=== PATIENT | male | born 2000 | race Caucasian/White ===

== ENCOUNTER 2022-08-06 17:55 | Emergency (ER) | payer OTHER, SELFPAY ==
[2022-08-06 18:01] VITALS: BP 145/73; PULSE 60; RESP 16; TEMP 36.9; O2SAT 99; BMI 25.0
--- NOTE | 2022-08-06 18:47 | CRLHL7_ITS ---
For Patients: As a result of the Century Cures Act, medical imaging exams and procedure reports are released immediately into your electronic medical record. You may view this report before your referring provider. If you have questions, please contact your health care provider. Indication: Pain over right anterior superior pelvis from an injury. Technique: Single AP view of the pelvis. Comparison: None Findings/Impression: No acute fracture or dislocation. Femoral necks are not well evaluated due to positioning. Normal alignment of the pubic symphysis. No sacral ala fracture identified. Nonspecific nonobstructive bowel gas pattern in the lower abdomen. Dictated by Isamar Brown MD @ 08/06/2022 7:27:55 PM (Electronically Signed)
[2022-08-06] MEDS: ACETAMINOPHEN 500 MG TABLET 1000 MG PO (18:59)
--- NOTE | 2022-08-06 19:24 | ED_ITS ---
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 He has pain over the right lower quadrant of his abdomen, and is brought in by friend, he has no pain with walking per se or standing, it is whenever he flexes or moves his muscles. There is no history of loss of consciousness back, neck or arm pain. He did take some ibuprofen before the game with this was for other aches and pains. Related Data Home Medications Medication Instructions Recorded Confirmed No Known Home Medications 08/06/22 08/06/22 Allergies Allergy/AdvReac Type Severity Reaction Status Date / Time No Known Drug Allergies Allergy Verified 08/06/22 17:43 Review of Systems Status of ROS: Reports: 6 or more systems reviewed and unremarkable except as noted in History and below PFSH PFSH Social History Smoking Status: Never smoker Do you use any of these nicotine containing products: None How often do you have a drink containing alcohol: never How often do you have six or more drinks on one occasion: Never AUDIT-C Alcohol total score: 0 Non-prescribed substance use: denies use service: No Exam Narrative: Exam Narrative: 22-year-old gentleman seen in room 7, he is in no apparent distress, he is able to stand and walk around although he is very rosa when he moves. His right lower quadrant sews of swelling overlying the anterior superior iliac crest, he is very thin, no masses twisting or turning tends to exacerbate his pain. Testicles both normal, no masses noted. Bowel sounds are normal no organomegaly, Chest is good air entry bilaterally with no wheezes crackles noted heart sounds are normal, Thoracic lumbar and cervical spines are nontender. Able to walk fully, hips have good range of motion bilaterally. With internal external rotation and flexion normal. Distal pulses are normal. Ultrasound was used and overlying the right superior iliac crest he is small amount of fluid overlying the bone. Consistent with a small hematoma, Const: Vital Signs, click to edit/add: Vital Signs - 24 hr 08/06/22 18:01 Temperature 98.4 F Pulse Rate [Pulse Oximeter] 60 Respiratory Rate 16 Blood Pressure [Ri ght Upper Arm] 145/73 H Pulse Oximetry 99 Oxygen Delivery Me thod Room Air Documenting provider has reviewed patient's vital signs: yes Course Vital Signs Vital signs: Initial Vital Signs Temperature 98.4 F 08/06/22 18:01 Temperature Source Temporal Artery Scan 08/06/22 18:01 Pulse Rate 60 08/06/22 18:01 Respiratory Rate 16 08/06/22 18:01 Blood Pressure 145/73 H 08/06/22 18:01 Blood Pressure Mean 97 08/06/22 18:01 Blood Pressure Position Supine 08/06/22 18:01 Pulse Oximetry 99 08/06/22 18:01 Oxygen Delivery Method 08/06/22 18:01 Vital Signs Temperature 98.4 F 08/06/22 18:01 Pulse Rate 60 08/06/22 18:01 Respiratory Rate 16 08/06/22 18:01 Blood Pressure 145/73 H 08/06/22 18:01 Pulse Oximetry 99 08/06/22 18:01 Oxygen Delivery Method 08/06/22 18:01 Temperature 98.4 F 08/06/22 18:01 Pulse Rate 60 08/06/22 18:01 Respiratory Rate 16 08/06/22 18:01 Blood Pressure 145/73 H 08/06/22 18:01 Pulse Oximetry 99 08/06/22 18:01 Oxygen Delivery Method 08/06/22 18:01 Medical Decision Making Imaging Data Pelvis x-ray: Attestation: I have reviewed the pertinent imaging results. My impression: Negative x-ray Radiologist's impression: Patient: JACKIE CROWLEY Facility: [facility] Site . Site : 2001 Study: XRay Pelvis -08/06/2022 6:58:47 PM Ordering Physician: Jamaal Curry Final Report: Indication: Pain over right anterior superior pelvis from an injury. Technique: Single AP view of the pelvis. Comparison: None Findings/Impression: No acute fracture or dislocation. Femoral necks are not well evaluated due to positioning. Normal alignment of the pubic symphysis. No sacral ala fracture identified. Nonspecific nonobstructive bowel gas pattern in the lower abdomen. Dictated by Isamar Brown MD @ 08/06/2022 7:27:55 PM (Electronic Signature) Discharge Plan Discharge Clinical Impression: Pelvic contusion Patient Disposition: Home, Self-Care Condition: Improved Instructions: Contusion in Adults (ED) Additional Instructions: Home, rest, use of Tylenol 1 g p.o. t.i.d., ibuprofen 600 mg p.o. t.i.d. and ice over the area, limited motion for the next 24-72 hours. Up in the training room early in the week, x-rays were negative, ultrasound just showed a little bit of blood above the bone, but otherwise normal. Prescriptions: No Action No Known Home Medications Follow Up/Referrals: Provider,Not a Local [Primary Care Provider] - Stand Alone Forms: MyHealth Info Instructions
== END 2022-08-06 19:53 | disposition home or self-care (01) ==
PROVIDERS: Emergency Provider Family Medicine
DX: S30.0XXA Contusion of lower back and pelvis, initial encounter (principal); W50.0XXA Accidental hit or strike by another person, initial encounter; Y93.66 Activity, soccer; Y92.322 Soccer field as the place of occurrence of the external cause; Y99.8 Other external cause status
CPT/HCPCS: 72170; 99283; 99284; A9270